=== PATIENT | female | born 1950 | race Caucasian/White ===

== ENCOUNTER → 2020-09-08 09:57 | Outpatient (CLI) | payer MEDICARE, SELFPAY ==
--- NOTE | ~2020-09-08 | MM_ITS ---
EXAMINATION: MM screening analilia BI w mal HISTORY: Screening TECHNIQUE: Craniocaudal and mediolateral oblique 3-D tomosynthesis images were obtained and synthetic 2-D images were generated. CAD analysis was submitted and interpreted. COMPARISON: Comparison to multiple prior studies sequentially, with oldest reviewed study dated 11/23. BREAST PARENCHYMAL COMPOSITION: There are scattered areas of fibroglandular density. FINDINGS: There is no evidence of suspicious mass, calcification, or architectural distortion to sugg est malignancy in either breast. There has been no suspicious interval change. IMPRESSION: 1. No mammographic evidence of malignancy. 2. Recommend routine screening mammography in one year. BI-RADS Category 1: Negative Reviewed, dictated and finalized at location A.
--- NOTE | ~2020-09-08 | DEXA_ITS ---
Bone Density Report Name: Yara Noland Age: 69 Sex: Female Ethnicity: White Date of : 1950 Indication: postmenopausal; screening for osteoporosis; height loss; Referring Provider: ASIA, NOHELIA Galindo Study: Bone densitometry was performed. Exam Date: September 08, 2020 Accession number: [id number] Bone Density: Region BMD T-score Z-score Classification AP Spine (L1-L4) 0.956 -0.8 1.4 Normal Femoral Neck (Left) 0.671 -1.6 0.3 Osteopenia Total Hip (Left) 0.811 -1.1 0.5 Osteopenia Femoral Neck (Right) 0.672 -1.6 0.3 Osteopenia Total Hip (Right) 0.828 -0.9 0.7 Normal Total Hip Mean 0.820 -1.0 0.6 Normal World Health Organization criteria for BMD impression classify patients as: Normal (T-score at or above -1.0), Osteopenia (T-score between -1.0 and -2.5), or Osteoporosis (T-score at or below -2.5). 10-year Fracture Risk(1): Major Osteoporotic Fracture 11% Hip Fracture 1.9% Reported Risk Factors: [place] (), Neck BMD=0.672, BMI=25.8 (1) FRAX(R) Version 3.08. Fracture probability calculated for an untreated patient. Fracture probability may be lower if the patient has received treatment. Previous Exams: Region Exam Age BMD T-score BMD Change BMD Change Date g/cm2 vs Baseline vs Previous AP Spine(L1-L4) 09/08/2020 69 0.956 -0.8 0.064* -0.033* 04/20/2018 67 0.989 -0.5 0.098* 0.007 04/14/2016 65 0.983 -0.6 0.091* 0.046* 11/03/2012 61 0.936 -1.0 0.045* 0.020 10/16/2010 59 0.916 -1.2 0.024* -0.004 08/16/2008 57 0.920 -1.2 0.029* 0.011 05/01/2007 56 0.909 -1.3 0.018 0.018 04/18/2006 55 0.892 -1.4 Total Hip(Left) 09/08/2020 69 0.811 -1.1 -0.101* -0.022 04/20/2018 67 0.833 -0.9 -0.080* -0.011 04/14/2016 65 0.845 -0.8 -0.068* -0.025 11/03/2012 61 0.870 -0.6 -0.043* -0.010 10/16/2010 59 0.880 -0.5 -0.033* -0.044* 08/16/2008 57 0.923 -0.2 0.011 -0.067* 05/01/2007 56 0.990 0.4 0.078* 0.078* 04/18/2006 55 0.913 -0.2 Total Hip(Right) 09/08/2020 69 0.828 -0.9 -0.106* -0.022 04/20/2018 67 0.849 -0.8 -0.084* -0.009 04/14/2016 65 0.858 -0.7 -0.076* -0.039* 11/03/2012 61 0.897 -0.4 -0.037* -0.006 10/16/2010 59 0.903 -0.3 -0.031* -0.056* 08/16/2008 57 0.959 0.1 0.025 -0.035* 05/01/2007 56
== END ==
PROVIDERS: PCP Internal Medicine; Visit Provider Internal Medicine
DX: Z12.31 Encounter for screening mammogram for malignant neoplasm of breast (principal); Z78.0 Asymptomatic menopausal state; M85.852 Other specified disorders of bone density and structure, left thigh; M85.851 Other specified disorders of bone density and structure, right thigh
CPT/HCPCS: 77063; 77067; 77080

== ENCOUNTER 2020-12-12 03:22 | Day surgery (SDC) | payer MEDICARE, SELFPAY ==
[2020-11-28 13:44] VITALS: BMI 24.5
[2020-12-12 09:52] VITALS: BP 131/59; PULSE 66; RESP 20; TEMP 36.2; O2SAT 99; BMI 23.8
--- NOTE | 2020-12-12 10:00 | WPDANESEPPF ---
Anes - Initial Pre Proc Eval Procedure: Operation Date: 12/12/20 10:30 Proposed Procedures p Colonoscopy - Sajan Leung MD Date/Time: 12/12/20 10:00 Surgeon: Sajan Leung MD Pre Op Diagnosis: hx of colon polyps, chronic diarrhea Patient Data Age: 70 Gender: F Height: 1.6 m Weight: 61.2 kg Last Vital Signs Temp 36.2 C L 12/12/20 09:52 Pulse 66 12/12/20 09:52 Resp 20 12/12/20 09:52 BP 131/59 L 12/12/20 09:52 Pulse Ox 99 12/12/20 09:52 Allergies Allergy/AdvReac Type Severity Reaction Status Date / Time No Known Allergies Allergy Verified 12/12/20 09:51 Home Medications Medication Instructions Recorded Confirmed Type rspigjxxuhru-Gy-ksmz-minerals 18 1 tablet PO DAILY 09/25/19 11/28/20 History mg-0.4 mg tablet oxybutynin chloride 10 mg 10 mg PO DAILY 08/26/20 11/28/20 History tablet,extended release 24 hr pantoprazole 40 mg tablet,delayed 40 mg PO QAM 08/26/20 11/28/20 History release trazodone 100 mg tablet 100 mg PO QHS PRN 08/26/20 11/28/20 History ibuprofen 800 mg tablet 800 mg PO HS tablet 11/25/20 11/28/20 History psyllium husk 3.4 gram/5.4 gram 1 tbsp PO BID 11/25/20 11/28/20 History oral powder Patient hx anesthesia problems: none Family hx anesthesia problems: none [facility] Past Medical History Medical History (Updated 12/12/20 @ 10:00 by Harman Beavers MD) Osteoarthritis Social History Social History Smoking status: Former smoker Tobacco type: cigarettes Alcohol intake: never Substance use: never Living arrangements: with family Gender identity (if verbalized by the patient): Female Spiritual care concerns: No Anes - Eval Final PreProcedure Day of Procedure 12/12/20 10:00 Patient weight: normal Heart: regular rate and rhythm Lungs: clear to auscultation and normal air movement Airway: Mallampati scale class II Neurological: alert and oriented Last oral intake: >/= 8 hours ASA classification: II Emergent: no Anesthetic plan: proceed Anesthesia type and monitoring: general GIVS Informed Consent: The patient's anesthetic plan and its attendant risks and benefits were discussed with the patient/family/POA. Questions were solicited and answers provided to the satisfaction of the patient/family/POA.
[2020-12-12] MEDS: LACTATED RINGERS 1,000 ML 150 ML IV CONT (10:05)
[2020-12-12 11:05] VITALS: BP 115/76; PULSE 59; RESP 14; O2SAT 99
[2020-12-12 11:15] VITALS: BP 122/80; PULSE 53; RESP 15; O2SAT 99
[2020-12-12 11:25] VITALS: BP 119/80; PULSE 56; RESP 16; O2SAT 100
== END 2020-12-12 11:33 | disposition home or self-care (01) ==
PROVIDERS: PCP Internal Medicine; Visit Provider Internal Medicine Gastroenterology
PROC: 0DJD8ZZ Inspection of Lower Intestinal Tract, Via Natural or Artificial Opening Endoscopic (ICD-10-PCS; CPT 45378; principal; 2020-12-12 10:30)
DX: Z12.11 Encounter for screening for malignant neoplasm of colon (principal); K63.5 Polyp of colon; K57.30 Diverticulosis of large intestine without perforation or abscess without bleeding; M19.90 Unspecified osteoarthritis, unspecified site; Z87.891 Personal history of nicotine dependence
CPT/HCPCS: 45385; 88305; J2704; J7120

== ENCOUNTER → 2022-11-18 09:44 | Outpatient (CLI) | payer MEDICARE, SELFPAY ==
--- NOTE | ~2022-11-18 | DEXA_ITS ---
Bone Density Report Name: HONG LOCO Age: 72 Sex: Female Ethnicity: White Date of : 1950 Indication: osteopenia; height loss; postmenopausal Referring Provider: ASIA, NOHELIA Galindo Study: Bone densitometry was performed. Exam Date: November 18, 2022 Accession number: [id number] Bone Density: Region BMD T-score Z-score Classification AP Spine (L1, L2) 0.896 -0.8 1.4 Normal Femoral Neck (Left) 0.633 -2.0 0.1 Osteopenia Total Hip (Left) 0.823 -1.0 0.8 Normal Femoral Neck (Right) 0.685 -1.5 0.5 Osteopenia Total Hip (Right) 0.822 -1.0 0.7 Normal Total Hip Mean 0.823 -1.0 0.8 Normal World Health Organization criteria for BMD impression classify patients as: Normal (T-score at or above -1.0), Osteopenia (T-score between -1.0 and -2.5), or Osteoporosis (T-score at or below -2.5). 10-year Fracture Risk(1): Major Osteoporotic Fracture 12% Hip Fracture 2.9% Reported Risk Factors: [place] (), Neck BMD=0.633, BMI=27.5 (1) FRAX(R) Version 3.08. Fracture probability calculated for an untreated patient. Fracture probability may be lower if the patient has received treatment. Previous Exams: Region Exam Age BMD T-score BMD Change BMD Change Date g/cm2 vs Baseline vs Previous AP Spine(L1, L2) 11/18/2022 72 0.896 -0.8 0.087* -0.004 09/08/2020 69 0.900 -0.7 0.091* 0.030* 04/20/2018 67 0.870 -1.0 0.062* 0.008 04/14/2016 65 0.862 -1.1 0.054* 0.010 11/03/2012 61 0.853 -1.1 0.044* 0.024* 10/16/2010 59 0.829 -1.4 0.020 -0.007 08/16/2008 57 0.836 -1.3 0.027* 0.001 05/01/2007 56 0.834 -1.3 0.026* 0.026* 04/18/2006 55 0.808 -1.6 Total Hip(Left) 11/18/2022 72 0.823 -1.0 -0.089* 0.012 09/08/2020 69 0.811 -1.1 -0.101* -0.022 04/20/2018 67 0.833 -0.9 -0.080* -0.011 04/14/2016 65 0.845 -0.8 -0.068* -0.025 11/03/2012 61 0.870 -0.6 -0.043* -0.010 10/16/2010 59 0.880 -0.5 -0.033* -0.044* 08/16/2008 57 0.923 -0.2 0.011 -0.067* 05/01/2007 56 0.990 0.4 0.078* 0.078* 04/18/2006 55 0.913 -0.2 Total Hip(Right) 11/18/2022 72 0.822 -1.0 -0.112* -0.006 09/08/2020 69 0.828 -0.9 -0.106* -0.022 04/20/2018 67 0.849 -0.8 -0.084* -0.009 04/14/2016 65 0.858 -0.7 -0.076* -0.039* 11/03/2012 61 0.897 -0.4 -0.037*
--- NOTE | ~2022-11-18 | MM_ITS ---
EXAMINATION: MM screening analilia BI w mal HISTORY: Screening mammogram TECHNIQUE: Craniocaudal and mediolateral oblique 3-D tomosynthesis images were obtained and synthetic 2-D images were generated. CAD analysis was submitted and interpreted. COMPARISON: 10/05/2020, 05/22/2019, 04/20/2018 bilateral screening mammogram examinations BREAST PARENCHYMAL COMPOSITION: The breasts are heterogeneously dense, which may obscure small masses . FINDINGS: There is no evidence of suspicious mass, calcification, or architectural distortion to sugg est malignancy in either breast. There has been no suspicious interval change. IMPRESSION: 1. No mammographic evidence of malignancy. 2. Recommend routine screening mammography in one year. BI-RADS Category 1: Negative Reviewed, dictated and finalized at location A.
== END ==
PROVIDERS: PCP Internal Medicine; Visit Provider Internal Medicine
DX: Z12.31 Encounter for screening mammogram for malignant neoplasm of breast (principal); Z78.0 Asymptomatic menopausal state; M85.852 Other specified disorders of bone density and structure, left thigh; M85.851 Other specified disorders of bone density and structure, right thigh
CPT/HCPCS: 77063; 77067; 77080

== ENCOUNTER 2024-05-03 13:57 | Outpatient (CLI) | payer MEDICARE, OTHER, SELFPAY ==
--- NOTE | ~2024-05-03 | MM_ITS ---
EXAMINATION: MM screening analilia BI w mal HISTORY: Screening TECHNIQUE: Craniocaudal and mediolateral oblique 3-D tomosynthesis images were obtained and synthetic 2-D images were generated. CAD analysis was submitted and interpreted. COMPARISON: 11/18/2022 and dating back to 05/22/2019 BREAST PARENCHYMAL COMPOSITION: FINDINGS: Punctate calcifications detected bilaterally, stable and benign in appearance. Stable parenchymal pattern without suspicious microcalcifications, architectural distortion, discrete masses or significant asymmetry. IMPRESSION: 1. No mammographic evidence of malignancy. 2. Recommend routine screening mammography in one year. BI-RADS Category 2: Benign finding(s). Reviewed, dictated and finalized at location A. NG ROOM CASHIER
== END 2024-05-03 13:58 | disposition home or self-care (01) ==
PROVIDERS: PCP Internal Medicine; Visit Provider Internal Medicine
DX: Z12.31 Encounter for screening mammogram for malignant neoplasm of breast (principal); R92.323 Mammographic fibroglandular density, bilateral breasts
CPT/HCPCS: 77063; 77067

== ENCOUNTER 2024-05-21 12:34 | Outpatient (CLI) | payer MEDICARE, OTHER, SELFPAY ==
--- NOTE | ~2024-05-21 | XR_ITS ---
CHEST RADIOGRAPH, PA AND LATERAL CLINICAL HISTORY: Dyspnea . COMPARISON: None available TECHNIQUE: PA and lateral views of the chest. FINDINGS The cardiomediastinal silhouette is unremarkable. The lungs are clear. Visualized osseous structures and soft tissues are unremarkable. IMPRESSION: No focal infiltrate or effusion. If clinical suspicion persists, cross-sectional imaging (noncontrast enhanced CT examination of the c hest) is suggested for further evaluation. Reviewed, dictated and finalized at location A. CTOR OF SOLUTIONS ARCHITECTURE IMPRESSION: No focal infiltrate or effusion. If clinical suspicion persists, cross-sectional imaging (noncontrast enhanced C T examination of the chest) is suggested for further evaluation.
== END 2024-05-21 12:35 | disposition home or self-care (01) ==
LOC: MICIMG 12:36
PROVIDERS: PCP Internal Medicine; Visit Provider Internal Medicine
DX: R06.00 Dyspnea, unspecified (principal)
CPT/HCPCS: 71046

== ENCOUNTER 2025-03-11 01:03 | Emergency (ER) | payer MEDICARE, OTHER, SELFPAY ==
[2025-03-11 01:05] VITALS: BP 148/80; PULSE 76; RESP 16; TEMP 36.3; O2SAT 100
--- OUTSIDE RECORDS SUMMARY | 2025-03-11 01:06 | XMS_ITS | Clinical Summary ---
Author Organization [facility] Address [address] [place] [address] Care Team Providers Care Rfid Systems Engineer Name Role Phone Marek Irwin MD Unavailable [phone] Deonte Easton MD Primary Care Provider [phone] Nicolas MURRAY MD, Dominick Unavailable [phone] Source Comments [facility],non-owned Affiliates and Associated Physician Practices is amultiple site organization consisting of ambulatory clinics and hospital sitesin [place], [place], [place] and [place]. This disclosure is being madepursuant to the Care Everywhere program and may not contain all information available regarding this patient. Last updated 18.[facility] Allergies Active Allergy Reactions Criticality Noted Date Comments Food GI Discomfort 10/18/2023 lactose Medications * Be aware that medications may not be up to date on this document. Alwaysverify current medications with the patient. Multiple Vitamins-Calciu m (ONE-A-DAY WOMENS PO)Indications: SUPPLEMENT Take by mouth. Indications: SUPPLEMENT Active B Complex Vitamins (VITAMIN B COMPLEX PO)Indications: SUPPLEMENT Take by mouth once daily. Indications: SUPPLEMENT Active calcium-vitamin D (CALTRATE PLUS D) 600-200 MG-UNIT tabletIndicatio ns:SUPPLEMENT Take 1 (one) tablet by mouth once daily Reasons: SUPPLEMENT Active aspirin EC (ECOTRIN) 325 MG tablet Take 1 Tab by mouth 2 times daily with morning and evening meal for 42 days. For 6 weeks 60 Tab 1 5 Active celecoxib (CELEBREX) 200 MG capsule Take 1 Cap by mouth 2 times daily for 30 days. 60 Cap 0 5 Active pantoprazole EC (Protonix) 40 MG tabletIndicatio ns:Heartburn Take 1 (one) tablet by mouth every morning Reasons: Heartburn 4 Active trospium (Sanctura) 20 MG tabletIndicatio ns:Overactive Bladder Take 1 (one) tablet by mouth 2 times daily Reasons: Overactive Bladder 4 Active traZODone (Desyrel) 100 MG tabletIndicatio ns:Insomnia TAKE 1 TABLET BY MOUTH ONCE DAILY AT BEDTIME NEEDED 4 Active acetaminophen (Tylenol) 500 MG capsuleIndicati ons:Pain,MILD TO MODERATE PAIN Take 2 (two) capsules by mouth 3 times daily Take for ten days then as needed. 4 Active oxyCODONE, immediate release, (Roxicodone) 10 MG tabletIndicatio ns:Acute Pain,MODERATE TO SEVERE PAIN Take 0.5 (one-half) tablet to 1 (one) tablet by mouth every 4 hours as needed for Pain (PAIN) Reasons: Acute Pain, MODERATE TO SEVERE PAIN 30 tablet 4 Active cyclobenzaprine (Flexeril) 10 MG tablet Take 1 (one) tablet by mouth nightly as needed for Muscle Spasms 30 tablet 1 4 Active aspirin (Aspirin) 81 MG chew tablet CHEW AND SWALLOW 1 TABLET BY MOUTH TWO TIMES A DAY FOR 42 DAYS FOR BLOOD CLOT PREVENTION 84 tablet 4 Active celecoxib (CeleBREX) 200 MG capsule TAKE ONE CAPSULE BY MOUTH 2 TIMES A DAY FOR 42 DAYS 84 capsule 4 Active Hospital, Clinic, or Other Facility Administered Medication Ordered Dose Route Frequency Start Date End Date Status 0.9% NaCl injection 3 mLIndications:Rotator cuff arthropathy, right 3 mL IX ONCE 02/20/2025 02/20/2025 Ended triamcinolone acetonide (Kenalog-40) injection 40 mgIndications:Rotator cuff arthropathy, right 40 mg IX ONCE 02/20/2025 02/20/2025 Ended Active Problems Problem Noted Date Diagnosed Date Arthritis of knee 10/17/2023 History of left knee replacement 12/12/2017 Encounters Date Type Department Care Team Description 02/20/2025 2:55 PM CDT Ancillary Procedure [facility] - Radiology [address] [place] [address] Tiffany Jaimes PA-C Rotator cuff arthropathy, right 02/20/2025 2:45 PM CDT Office Visit [facility] [address] [place] [address] Tiffany Jaimes PA-C Rotator cuff arthropathy, right (Primary Dx) from Last 3 Months Immunizations Immunization Administration Dates Next Due PNEUMOCOCCAL PPSV23 05/17/2014 TD (ADULT), 5 LF TETANUS TOXOID, ADSORBED, PF Social History Tobacco Use Types Packs/Day Years Used Date Smoking Tobacco: Former Cigarettes Smokeless Tobacco: Never Tobacco Cessation:Counseling Given: Not Answered Alcohol Use Standard Drinks/Week Comments Yes 0.8 (1 standard drink = 0.6 oz p ure alcohol) glass of wine once a month OASIS D0700: Social Isolation Answer Da te Recorded Frequency of experiencing loneliness or isolatio n Never 11/03/2023 OASIS A1250: Transportation Answer Date Recorded Lack of Transportation (Medical) No 11/03/2023 Lack of Transportation (Non-Medical) No 11/03/2023 Patient Unable or Declines to Respond No 11/03/2023 OASIS B1300: Health Literacy Answer Naeem e Recorded Frequency of needing help to read materials from doctor or pharmacy Never 11/03/2023 AUDIT-C Answer Date Recorded Q1: How often do you have a drink containing alc ohol? Monthly or less 10/17/2023 Q2: How many drinks containi ng alcohol do you have on a typical day when you are drinking? 1 or 2 10/17/2023 Q3: How often do you have si x or more drinks on one occasion? Never 10/17/2023 PHQ-2 Answer Date Recorded Patient Health Questionnaire-2 Score 0 02/13/2025 Hunger Vital Sign Answer Date Recorded Within the past 12 months, y ou worried that your food would run out before you got the money to buy more. Never true 10/18/19 24 Within the past 12 months, t he food you bought just didn't last and you didn't have money to get more. 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 Gender Identity Not on file Sexual Orientation Not on file Last Filed Vital Signs Vital Sign Reading Time Taken Comments Blood Pressure 112/62 11/03/2023 10:13 AM CDT Pulse 74 11/03/2023 10:13 AM CDT Temperature 37.1 C (98.7 F) 11/03/2023 10:13 AM CDT Respiratory Rate 17 11/03/2023 10:13 AM CDT Oxygen Saturation 98% 11/03/2023 10:13 AM CDT Inhaled Oxygen Concentration - - Weight 67.6 kg (149 lb) 10/17/2023 8:16 AM CDT Height 157.5 cm (5' 2) 10/17/2023 8:16 AM CDT Body Mass Index 27.25 10/17/2023 8:16 AM CDT Plan of Treatment Health Maintenance Due Date Last Done Comments BONE DENSITY TESTING 1950 MEDICARE AWV 12 MONTHS 1950 HEPATITIS C SCREENING 11/14/1966 ZOSTER VACCINE (1 of 2) 1998 PNEUMOCOCCAL VACCINE 50+ (2 of 2 - PCV) 05/17/2015 05/17/2014 Respiratory Syncytial Virus (RSV) Vaccine Pt: or over 60 yrs (1 - 1-dose 75+ series) 11/19/2023 DTAP/TDAP/TD VACCINES (2 - T d or Tdap) 07/27/2024 07/27/2014 COVID-19 VACCINE (3 - 2024-2 6 season) 2025 07/11/2020, 06/13/2020 INFLUENZA VACCINE (#1) 2025 02/28/2020 DEPRESSION SCREENING Completed 02/20/2025, 10/11/2023 HEPATITIS B VACCINE Aged Out No longe r eligible based on patient's age to complete this topic HIB VACCINE Aged Out No longer eligi ble based on patient's age to complete this topic HPV VACCINE Aged Out No longer eligi ble based on patient's age to complete this topic MENINGOCOCCAL (Group B) VACCINE SHARED DECISION-MAKING Aged Out No longer eligible based on patient's age to complete this topic MENINGOCOCCAL GROUPS A/C/Y/W VACCINE Aged Out No longer eligible b ased on patient's age to complete this topic Medical Devices Implanted Type Area Outside Event Sales Specialist Device Identifier Shelf Expiration Date Model / Serial / Lot Guero Bone [place] Hv Implanted:Qty: 1 on 05/15/2014 by Marek Irwin MD at [facility] Left: Knee [employer] 12/07/2015 [id number] / / [id number] Ins Kn Vangurd Fem Cocr L-Intlok 65.0mm Implanted:Qty: 1 on 05/15/2014 by Marek Irwin MD at [facility] Left: Knee [employer] 05/08/2024 [id number] / / [id number] Butn Pat Arcom Wire Polyeth Sm 31 X 8mm Implanted:Qty: 1 on 05/15/2014 by Marek Irwin MD at [facility] Left: Knee [employer] 04/07/2019 [id number] / / [id number] Tibial I Beam Fix Bar 71mm Implanted:Qty: 1 on 05/15/2014 by Marek Irwin MD at [facility] Left: Knee [employer] 01/07/2024 [id number] / / [id number] Brdg Tib Estephania Stbl 12mm X 71mm Implanted:Qty: 1 on 05/15/2014 by Marek Irwin MD at [facility] Left: Knee [employer] 04/07/2019 [id number] / / [id number] Brng [id number] Vngrd Arcm Kn Ant Stab Implanted:Qty: 1 on 10/17/2023 by Marek Irwin MD at [facility] Right: Knee Maris [employer] 03/02/2028 [id number] / / [id number] Cmnt Bone Plc R 40gm Grn Implanted:Qty: 1 on 10/17/2023 by Marek Irwin MD at [facility] Right: Knee [employer] 02/05/2026 [id number] / / [id number] Tray Tib 71mm Kn Cocr I Beam Implanted:Qty: 1 on 10/17/2023 by aMrek Irwin MD at [facility] Right: Knee Mairs [employer] 07/08/2032 [id number] / / [id number] Cmpnt Fem Kn Rt Cr Cmnt Prm Vngrd Intlk 65 Mm Implanted:Qty: 1 on 10/17/2023 by Marek Irwin MD at [facility] Right: Knee Mar[employer] 03/14/2033 [id number] / / [id number] Cmpnt Ptlr Std 28mm 3 Pg Kn Ser A Implanted:Qty: 1 on 10/17/2023 by Marek Irwin MD at [facility] Right: Knee Maris [employer] 08/03/2028 [id number] / / [id number] Procedures Procedure Name Priority Date/Time Associated Diagnosis Comments XR SHOULDER RIGHT 2VW OR MORE Routine 02/20/2025 2:57 PM CDT Rotator cuff arthropathy, right from Last 3 Months Results * XR Shoulder Right 2Vw or More (02/20/2025 2:57 PM CDT) Narrative [facility] [address] - 02/20/2025 2:57 PM CDT Please see progress note in Epic for results. us Tiffany Jaimes PA-C DIAGNOSTIC IMAGING ORDERABLE S Final Result [facility] [address] from Last 3 Months Insurance MEDICARE [facility] Advance Directives Documents on File Type Date Recorded Patient Health Care / Medical Job Titles Expl anation Adv Directive/Living Will/POA 05/18/2014 8:36 PM * Full Code (Latest Code Status on File) Date Activated Date Inactivated Comments 10/19/2023 3:07 PM To update the patient's code status, place a code status order. Do not modify or discontinue any currently active code status orders. * Full Code Date Activated Date Inactivated Comments 10/17/2023 2:14 PM 10/18/2023 2:23 PM * Full Code Date Activated Date Inactivated Comments 05/15/2014 10:39 AM 05/17/2014 1:51 PM Care Teams Rfid Systems Engineer Relationship Specialty Start Date End Date Deonte Easton MD [address] [facility] [address] [place] [address] PCP - General Internal Medicine 05/28/13 Marek Irwin MD Orthopedic Surgery 03/24/12 [place] [id number] [address] [place] [id number] Orthopedic Surgery 09/06/16
--- OUTSIDE RECORDS SUMMARY | 2025-03-11 01:07 | XMS_ITS | Data Portability ---
Author Organization [place] [facility], Main Office Address [address] [place] [address] Care Team Providers Care Rn Hematology Name Role Phone NOHELIA BETANCOURT Primary Care Provider NOHELIA BETANCOURT Referring Provider [phone] Assessment No assessment recorded. Plan of Treatment Reminders Order Date Submit Date Provider Last Modified By Organization Details Last Modified Time Details Appointments Medicare Wellness 15 2024 08:30A M Nohelia Betancourt MD Not available Not available Not available Lab vitamin D, 25-hydrox y, total, serum 2024 025 [email or web address] [facility] (Lab), [address] [place], [address], 10/29/2024 11:02:54 CBC w/ auto diff 2024 025 [facility] (Lab), [address] [place], [address], 10/22/2024 19:07:39 vitamin B12, serum 2024 025 [facility] (Lab), [address] [place], [address], 10/22/2024 20:53:09 iron + total iron-bind ing capacity (TIBC), serum 2024 025 [facility] (Lab), [address] [place], [address], 10/22/2024 19:23:51 CBC w/ auto diff 2024 025 [email or web address] [facility] (Lab), [address] [place], [address], 10/29/2024 11:02:54 lipid panel, serum 2024 025 [facility] (Lab), [address] [place], [address], 10/22/2024 19:24:18 CMP, serum or plasma 2024 025 [facility] (Lab), [address] [place], [address], 10/22/2024 19:24:23 Referral None recorded. Procedures None recorded. Surgeries None recorded. Imaging bone density - Please call patient to schedule. 2024 025 [facility] [place] ([facility]), [address] [place], [address], 11/22/2024 18:05:57 Medication Orders None recorded. Patient TargetsNo targets recorded. Patient Instructions Encounter Date Encounter Id Patient Instructions Last Modified By Organization Details Last Modified Time 07/16/2024 [id number] Personalized [facility] Plan and Screening Recommendations Advance Directives - Do you have one? Yes Advance Directives - Do we have your advance directive on file in your health record? No, please bring in a copy at your earliest convenience Primary Prevention/Interven tion (prevents or decreases the chance of common diseases from occurring) Smoking Risk: Non Smoker Alcohol Misuse Screening: Negative Weight: Overweight try to lose 10% of your body weight Physical activity: Need more exercise/physical activity Nutrition: Average Refer to attached handout Heart-Healthy Diet: After Your Visit Fall Risk (screened today): Low Refer to attached handout Preventing Falls: After your Visit Vaccines Pneumococcal: No further needed Influenza: Your next one in the fall of this year Chronic Disease Risks Stroke: Low Risk I have no recommendations Heart Attack: Low risk I have no recommendations Clogging of the Arteries: Low risk I have no recommendations Diabetes: Low Risk I have no recommendations Secondary Prevention/Interven tion (detects treatable diseases before they may cause symptoms, disability, or ) Breast Cancer Screening with mammogram: Ordered Cervical/Uterine/Ov mackenize Cancer Screening: No screening necessary Osteoporosis Screening: No screening necessary Date Screening Last Performed: 2022 Colon Cancer Screening: No screening necessary Date Screening Last Performed:2017 Eye Disease Screening: No Eye exam necessary Dementia Risk: Low I have no recommendations Depression Screening: Negative [email or web address] Not available 07/16/2024 15:54:24 11/21/2024 [id number] After ear cleani ng, it is common to have feeling of fullness or muffled sounds. This will subside after a day or so. Call with any concerns or questions. [email or web address] Not available 11/21/2024 09:36:15 Reason for Referral None Reported. Results Created Date Observation Date Name Description Value Unit Range Abnormal Flag Note LastModifiedBy Organization Detail LastModifiedTime 07/27/1907/26/2024 COLOG UARD cologuard result Cancel led - Order d not applic able Not Available [facility] [address], [place], [address], 07/26/2024 21:29:00 10/23/19 25 10/22/2024 CBC/C OMPLE TE BLD COUNT W/DIF F white blood cells 5.8 x10'3 /uL 4.2-10 .8 Not Available [facility] (Lab) [address] [place], [address], 10/22/2024 19:07:39 10/23/19 25 10/22/2024 CBC/C OMPLE TE BLD COUNT W/DIF F red blood cells 3.94 x10'6 /uL 3.80-5 .20 Not Available [facility] (Lab) [address] [place], [address], 10/22/2024 19:07:39 10/23/19 25 10/22/2024 CBC/C OMPLE TE BLD COUNT W/DIF F hemoglobin 13.5 g/dL 12.0-1 5.6 Not Available [facility] (Lab) [address] [place], [address], 10/22/2024 19:07:39 10/23/19 25 10/22/2024 CBC/C OMPLE TE BLD COUNT W/DIF F hematocrit 40.7 % 35.7-4 5.7 Not Available [facility] (Lab) [address] [place], [address], 10/22/2024 19:07:39 10/23/19 25 10/22/2024 CBC/C OMPLE TE BLD COUNT W/DIF F mean red cell volume 103.3 fL 82.0-9 9.0 high Not Available [facility] (Lab) [address] [place], [address], 10/22/2024 19:07:39 10/23/19 25 10/22/2024 CBC/C OMPLE TE BLD COUNT W/DIF F mean red cell hemoglobin 34.3 pg 27.0-3 3.0 high Not Available [facility] (Lab) [address] [place], [address], 10/22/2024 19:07:39 10/23/19 25 10/22/2024 CBC/C OMPLE TE BLD COUNT W/DIF F mean RBC HGB concentratio n 33.2 g/dL 31.0-3 6.0 Not Available [facility] (Lab) [address] [place], [address], 10/22/2024 19:07:39 10/23/19 25 10/22/2024 CBC/C OMPLE TE BLD COUNT W/DIF F red cell distribution width 13.1 % 11.8-1 5.5 Not Available [facility] (Lab) [address] [place], [address], 10/22/2024 19:07:39 10/23/19 25 10/22/2024 CBC/C OMPLE TE BLD COUNT W/DIF F platelets 280 x10'3 /uL 150-40 0 Not Available [facility] (Lab) [address] [place], [address], 10/22/2024 19:07:39 10/23/19 25 10/22/2024 CBC/C OMPLE TE BLD COUNT W/DIF F mean platelet volume 11.3 fL 9.0-12 .4 Not Available [facility] (Lab) [address] [place], [address], 10/22/2024 19:07:39 10/23/19 25 10/22/2024 CBC/C OMPLE TE BLD COUNT W/DIF F neutrophils 45.6 % 39.0-7 2.0 Not Available [facility] (Lab) [address] [place], [address], 10/22/2024 19:07:39 10/23/19 25 10/22/2024 CBC/C OMPLE TE BLD COUNT W/DIF F lymphocytes 41.0 % 16.0-4 7.0 Not Available [facility] (Lab) [address] [place], [address], 10/22/2024 19:07:39 10/23/19 25 10/22/2024 CBC/C OMPLE TE BLD COUNT W/DIF F monocytes 10.9 % 5.0-12 .0 Not Available [facility] (Lab) [address] [place], [address], 10/22/2024 19:07:39 10/23/19 25 10/22/2024 CBC/C OMPLE TE BLD COUNT W/DIF F eosinophils 1.6 % 1.0-7. 0 Not Available [facility] (Lab) [address] [place], [address], 10/22/2024 19:07:39 10/23/19 25 10/22/2024 CBC/C OMPLE TE BLD COUNT W/DIF F basophils 0.7 % 0.0-2. 0 Not Available [facility] (Lab) [address] [place], [address], 10/22/2024 19:07:39 10/23/19 25 10/22/2024 CBC/C OMPLE TE BLD COUNT W/DIF F immature granulocytes 0.2 % 0.00-0 .50 Not Available [facility] (Lab) [address] [place], [address], 10/22/2024 19:07:39 10/23/19 25 10/22/2024 CBC/C OMPLE TE BLD COUNT W/DIF F neutrophils, absolute count 2.65 x10'3 /uL 1.5-8. 0 Not Available [facility] (Lab) [address] [place], [address], 10/22/2024 19:07:39 10/23/19 25 10/22/2024 CBC/C OMPLE TE BLD COUNT W/DIF F lymphocytes, absolute count 2.38 x10'3 /uL 1.07-3 .43 Not Available [facility] (Lab) [address] [place], [address], 10/22/2024 19:07:39 10/23/19 25 10/22/2024 CBC/C OMPLE TE BLD COUNT W/DIF F monocytes, absolute count 0.63 x10'3 /uL 0.29-0 .99 Not Available [facility] (Lab) [address] [place], [address], 10/22/2024 19:07:39 10/23/19 25 10/22/2024 CBC/C OMPLE TE BLD COUNT W/DIF F eosinophils, absolute count 0.09 x10'3 /uL 0.02-0 .53 Not Available [facility] (Lab) [address] [place], [address], 10/22/2024 19:07:39 10/23/19 25 10/22/2024 CBC/C OMPLE TE BLD COUNT W/DIF F basophils, absolute count 0.04 x10'3 /uL 0.01-0 .08 Not Available [facility] (Lab) [address] [place], [address], 10/22/2024 19:07:39 10/23/19 25 10/22/2024 CBC/C OMPLE TE BLD COUNT W/DIF F immature granulocytes ,absolute 0.01 x10'3 /uL 0.00-0 .05 Not Available [facility] (Lab) [address] [place], [address], 10/22/2024 19:07:39 10/23/19 25 10/22/2024 CBC/C OMPLE TE BLD COUNT W/DIF F nucleated red blood cells 0.0 % -0 Not Available [facility] (Lab) [address] [place], [address], 10/22/2024 19:07:39 10/23/19 25 10/22/2024 CBC/C OMPLE TE BLD COUNT W/DIF F NRBC# 0.00 x10'3 /uL Not Available [facility] (Lab) [address] [place], [address], 10/22/2024 19:07:39 10/23/19 25 10/22/2024 IRON/ TIBC PANEL total iron binding capacity 232 mcg/d L 265-47 5 low Not Available [facility] (Lab) [address] [place], [address], 10/22/2024 19:34:30 10/23/19 25 10/22/2024 IRON/ TIBC PANEL % transferrin saturation 62 % 20-55 high Not Available [facility] (Lab) [address] [place], [address], 10/22/2024 19:34:30 10/23/19 25 10/22/2024 IRON/ TIBC PANEL unsaturated iron bind capacity 89 mcg/d L 126-38 2 low Not Available [facility] (Lab) [address] [place], [address], 10/22/2024 19:34:30 10/23/1910/22/2024 IRON/ TIBC PANEL iron 143 mcg/d L 42-175 Not Available [facility] (Lab) [address] [place], [address], 10/22/2024 19:34:30 10/23/19 25 10/22/2024 LIPID PANEL cholesterol 247 mg/dL 140-19 9 high NIH SALTY NSUS RECOM MENDA TION FOR PENELOPE STERO L: ADULT CHILD LOW RISK: <200 <170 BORDE RLINE : <200- 239 ----- HIGH RISK: >240 >200 Not Available [facility] (Lab) [address] [place], [address], 10/22/2024 19:30:02 10/23/19 25 10/22/2024 LIPID PANEL triglyceride s 80 mg/dL 0-150 NIH SALTY NSUS REPOR T RECOM MENDA TION FOR TRIGL YCERI MARY KAY: ADULT CHILD LOW RISK: <150 ----- BODER LINE: 150-1 99 ----- HIGH RISK: >200 ----- Not Available [facility] (Lab) [address] [place], [address], 10/22/2024 19:30:02 10/23/1910/22/2024 LIPID PANEL HDL cholesterol 129 mg/dL 40- Not Available [facility] (Lab) [address] [place], [address], 10/22/2024 19:30:02 10/23/1910/22/2024 LIPID PANEL LDL cholesterol, calculated 102 mg/dL 0-130 NIH SALTY NSUS REPOR T RECOM MENDA TIONS FOR LDL: ADULT CHILD LOW RISK <130 <110 (OPTI MAL LDL) <100 ----- BORDE RLINE : 130-1 59 ----- HIGH RISK: >160 >130 A TRIGL YCERI DE RESUL T >400 INVAL IDATE S THE CALCU LATIO N FOR LDL FRACT IONAT ION - THE LDL RESUL T WILL NOT BE REPOR MIKE. Not Available [facility] (Lab) [address] [place], [address], 10/22/2024 19:30:02 10/23/19 25 10/22/2024 COMPR EHENS KIMBERLY METAB OLIC PANEL sodium 137 mmol/ L 137-14 5 Not Available [facility] (Lab) [address] [place], [address], 10/22/2024 19:24:23 10/23/19 25 10/22/2024 COMPR EHENS KIMBERLY METAB OLIC PANEL potassium 4.8 mmol/ L 3.5-5. 1 Not Available [facility] (Lab) [address] [place], [address], 10/22/2024 19:24:23 10/23/19 25 10/22/2024 COMPR EHENS KIMBERLY METAB OLIC PANEL chloride 102 mmol/ L 98-107 Not Available [facility] (Lab) [address] [place], [address], 10/22/2024 19:24:23 10/23/19 25 10/22/2024 COMPR EHENS KIMBERLY METAB OLIC PANEL carbon dioxide 30 mmol/ L 22-30 Not Available [facility] (Lab) [address] [place], [address], 10/22/2024 19:24:23 10/23/19 25 10/22/2024 COMPR EHENS KIMBERLY METAB OLIC PANEL anion gap 9.8 mmol/ L 14-22 low Not Available [facility] (Lab) [address] [place], [address], 10/22/2024 19:24:23 10/23/19 25 10/22/2024 COMPR EHENS KIMBERLY METAB OLIC PANEL glucose 91 mg/dL 70-99 Not Available [facility] (Lab) [address] [place], [address], 10/22/2024 19:24:23 10/23/19 25 10/22/2024 COMPR EHENS KIMBERLY METAB OLIC PANEL BUN 19 mg/dL 8-19 Not Available [facility] (Lab) [address] [place], [address], 10/22/2024 19:24:23 10/23/19 25 10/22/2024 COMPR EHENS KIMBERLY METAB OLIC PANEL creatinine 0.78 mg/dL 0.66-1 .25 Not Available [facility] (Lab) [address] [place], [address], 10/22/2024 19:24:23 10/23/19 25 10/22/2024 COMPR EHENS KIMBERLY METAB OLIC PANEL GFR >60 Refer ence Range : Metaline ge GFR Healt hy Adult : >60 mL/mi n/1.7 3 m2 Chron ic Kidne y Disea se: 15-60 mL/mi n/1.7 3 m2 Kidne y Failu re: <15/m L/min /1.73 m2 www.n iddk. nih.g ov The MDRD study equat ion has not been valid ated in child fred <18 years of age; pregn ant women ; the elder ly >85 years of age; or in some racia l or ethni c subgr oups, such as [employer]. Outsi de the valid ated caprice eters , estim ated GFR is less accur ate, requi ring clini kathe judgm ent on a case- by-ca se basis . Clini kathe inter preta tion for other races and ages must be made by the clini neo. The MDRD study equat ion has not been valid ated for the evalu ation of serum creat inine relat ed to nutri maegan l statu s or medic ation usage . For perso ns <18 years of age, a pedia tric GFR calcu lator is avail able on the NK websi te: https ://danyel w.ana johnson.o rg/pr ofess ional s/kdo qi/gf r_cal culat or Not Available [facility] (Lab) [address] [place], [address], 10/22/2024 19:24:23 10/23/19 25 10/22/2024 COMPR EHENS KIMBERLY METAB OLIC PANEL alkaline phosphatase 69 U/L 38-126 Not Available [facility] (Lab) [address] [place], [address], 10/22/2024 19:24:23 10/23/19 25 10/22/2024 COMPR EHENS KIMBERLY METAB OLIC PANEL alanine aminotransfe rase 18 U/L 0-35 Not Available [facility] (Lab) [address] [place], [address], 10/22/2024 19:24:23 10/23/19 25 10/22/2024 COMPR EHENS KIMBERLY METAB OLIC PANEL aspartate aminotransfe rase 33 U/L 15-37 Not Available [facility] (Lab) [address] [place], [address], 10/22/2024 19:24:23 10/23/19 25 10/22/2024 COMPR EHENS KIMBERLY METAB OLIC PANEL bilirubin, total 0.60 mg/dL 0.20-1 .30 Not Available [facility] (Lab) [address] [place], [address], 10/22/2024 19:24:23 10/23/19 25 10/22/2024 COMPR EHENS KIMBERLY METAB OLIC PANEL calcium 9.9 mg/dL 8.4-10 .2 Not Available [facility] (Lab) [address] [place], [address], 10/22/2024 19:24:23 10/23/19 25 10/22/2024 COMPR EHENS KIMBERLY METAB OLIC PANEL total protein 6.6 g/dL 6.3-8. 2 Not Available [facility] (Lab) [address] [place], [address], 10/22/2024 19:24:23 10/23/19 25 10/22/2024 COMPR EHENS KIMBERLY METAB OLIC PANEL albumin 4.4 g/dL 3.0-4. 4 Not Available [facility] (Lab) [address] [place], [address], 10/22/2024 19:24:23 10/23/19 25 10/22/2024 COMPR EHENS KIMBERLY METAB OLIC PANEL globulin 2.2 g/dL 2.6-4. 2 low Not Available [facility] (Lab) [address] [place], [address], 10/22/2024 19:24:23 10/23/19 25 10/22/2024 COMPR EHENS KIMBERLY METAB OLIC PANEL A/G ratio 2.0 ratio 1.0-2. 0 Not Available [facility] (Lab) [address] [place], [address], 10/22/2024 19:24:23 10/23/19 25 10/22/2024 VITAM IN D 25-HY DROXY vd25oh 58.3 NG/mL 30-100 Vitam in D Statu s: Defic ient: <20 ng/mL Insuf ficie nt: 20-29 ng/mL Suffi cient : 30-10 0 ng/mL Not Available [facility] (Lab) [address] [place], [address], 10/22/2024 19:38:18 10/23/19 25 10/22/2024 VITAM IN B12 (GINNY ISAAC ) vb12 487 pg/mL 239-93 1 Not Available [facility] (Lab) [address] [place], [address], 10/22/2024 20:53:09 05/03/20 24 05/03/2024 MAMMO , scree dyana, digit al, bilat eral No observ ation record ed. [email or web address] Not Available 2024 12:18:25 05/04/20 24 05/03/2024 MAMMO , kay turpin, digit al, bilat eral No observ ation record ed. [email or web address] Not Available 2024 12:18:26 05/22/19 25 05/21/2024 XR, chest , 2 view No observ ation record ed. [email or web address] [facility] [address], [place], [address], 05/23/2024 12:16:39 10/30/19 25 10/29/2024 DEXA, axial skele ton [facility] [address] [place], [place] [id number] [phone] Patien t Name: YOLANDA LOCO BIANCA Access ion #: [id number] Sex: F : 1950 0 Dictat ed By: YOLIE WRIGHT Attend ing Physic marcus: ASIA BYRNES Physic marcus: DORY BETANCOURT Exam Date: 2024 10:07 AM Exam Name: XR DEXA-H IPS PELVIS SPINE Admitt ing Diagno sis(es ): Examin ation: XR DEXA-H IPS PELVIS SPINE Clinic al Indica tion: postme nopaus al state, AP Spine and Dual Femur. Compar jarek: None. Techni que: Bone minera l densit y was evalua mike. Findin gs: 1. Lumbar spine (L1-L4 ): BMD: 1.213 g/cm2 T-Scor e: 0.1 Z-Scor e: 1.8 2. Left Total Hip: BMD: 0.846 g/cm2 T-Scor e: -1.3 Z-Scor e: 0.4 3. Right Total Hip: BMD: 0.819 g/cm2 T-Scor e: -1.5 Page 1 [facility] [address] [id number] Patien t Name: YOLANDA LOCO Access ion #: [id number] Sex: F : 1950 0 Dictat ed By: YOLIE WRIGHT Attend ing Physic marcus: DORY BETANCOURT Orderyaquelin Physic marcus: DORY BETANCOURT ER Exam Date: 2024 10:07 AM Exam Name: XR DEXA-H IPS PELVIS SPINE Admitt ing Diagno sis(es ): Z-Scor e: 0.2 The WHO fractu re risk assess ment (FRAX) was utiliz ed and the 10-yea r probab ility of a major osteop orotic fractu re in this patien t is estima mike to be 13.5%- and 10-yea r probab ility of a hip fractu re in this patien t is estima mike to be 3.5%. Impres tommy: Based on World Health Organi zation (WHO) criter ia, this patien t falls within the range of lower bone densit y/oste openia at bilate ral hip level. Lumbar spine falls within normal range. Relate d Inform ation: 1. The T-scor e is relati ve to peak bone mass in early adulth ood, while the Z-scor e is relati ve to indivi duals of the same age and sex. 2. The paid intern ationa l societ y for Clinic al Densit ometry recomm ends catego rizing the patien t accord ing to the lowest T-scor e from the total L-spin e, total hip and femora l neck utiliz ing the follow ing World Health Organi zation Criter ia: Normal range: T-scor e of - 1.0 or above. Low bone mass: T-scor e of less than-1 .0 but greate r than -2.5. Osteop orosis : T-scor e of -2.5 or below. 3. Depend ing on the above result s, clinic al manage ment may includ e calciu m and vitami n D supple mentat ion, weight bearin g exerci se and drug therap y, includ ing bispho sphona flavia, Evista or hormon al replac ement. Also consid er follow -up DEXA scan in 1-2 years if clinic ally indica mike. Prefer ably this should be done at the same facili ty. More freque nt scanni ng may be requir ed in the settin g of drug-i nduced bone loss or metabo lic bone diseas e. Electr onical ly Signed 025 12:17 KYLE Guevara Electr onical ly Signed by: YOLIE WRIGHT at 2024 12:17: 00 PM Page 3 [email or web address] [facility] (Imaging) [address] [place], [address], 11/06/2024 14:41:59 Result Notes Documentation Provider Name and Address Organization Details Recorded Time Dexa, Axial Skeleton : [facility] [address] [place] [address] Patient Name: HONG LOCO Sex: F : 1950 Dictated By: EVELIA WRIGHT Attending Physician: ASIA POZO Ordering Physician: NOHELIA BETANCOURT Exam Date: 10/29/2024 10:07 AM Exam Name: XR DEXA-HIPS PELVIS SPINE Admitting Diagnosis(es): Examination: XR DEXA-HIPS PELVIS SPINE Clinical Indication: postmenopausal state, AP Spine and Dual Femur. Comparison: None. Technique: Bone mineral density was evaluated. Findings: 1. Lumbar spine (L1-L4): BMD: 1.213 g/cm2 T-Score: 0.1 Z-Score: 1.8 2. Left Total Hip: BMD: 0.846 g/cm2 T-Score: -1.3 Z-Score: 0.4 3. Right Total Hip: BMD: 0.819 g/cm2 T-Score: -1.5 Page 1 [facility] [address] [place] [address] Patient Name: HONG LOCO Sex: F : 1950 Dictated By: EVELIA WRIGHT Attending Physician: NOHELIA BETANCOURT Ordering Physician: NOHELIA BETANCOURT Exam Date: 10/29/2024 10:07 AM Exam Name: XR DEXA-HIPS PELVIS SPINE Admitting Diagnosis(es): Z-Score: 0.2 The WHO fracture risk assessment (FRAX) was utilized and the 10-year probability of a major osteoporotic fracture in this patient is estimated to be 13.5%- and 10-year probability of a hip fracture in this patient is estimated to be 3.5%. Impression: Based on World Health Organization (WHO) criteria, this patient falls within the range of lower bone density/osteopenia at bilateral hip level. Lumbar spine falls within normal range. Related Information: 1. The T-score is relative to peak bone mass in early adulthood, while the Z-score is relative to individuals of the same age and sex. 2. The international society for Clinical Densitometry recommends categorizing the patient according to the lowest T-score from the total L-spine, total hip and femoral neck utilizing the following World Health Organization Criteria: Normal range: T-score of - 1.0 or above. Low bone mass: T-score of less than-1.0 but greater than -2.5. Osteoporosis: T-score of -2.5 or below. 3. Depending on the above results, clinical management may include calcium and vitamin D supplementation, weight bearing exercise and drug therapy, including bisphosphonates, Evista or hormonal replacement. Also consider follow-up DEXA scan in 1-2 years if clinically indicated. Preferably this should be done at the same facility. More frequent scanning may be required in the setting of drug-induced bone loss or metabolic bone disease. Electronically Signed 10/29/2024 12:17 KYLE ALTAMIRANO Page 3 FRANK Farrell [place] [facility] 11/06/2024 14:41:59 Problems Name Problem SNOMED Code Status Onset Date Resolution Date Notes Provider Name and Address Organization Details Recorded Time Injury of lower limb 499068309 Completed Not Available [facility] 3 06:02:36 Backache 434361810 Completed Not Available [facility] 3 06:02:37 Osteoarth ritis of knee 381240406 Active Not Available [facility] 3 06:02:37 Wax in ear canal 654918240 Completed Nohelia Betancourt MD [address], [place], [address] , [facility] 5 12:20:07 Insect bite to arm - nonvenomo 263394691 Completed Not Available [facility] 3 06:02:38 Diverticu lar disease 453093201 Active Not Available [facility] 3 06:02:38 Upper respirato ry infection 77294600 Completed Nohelia Betancourt MD [address], [address], [place], [address] , [facility] 5 15:36:32 Overactiv e urinary bladder 603609274 Active 2019 Not Available [facility] 3 06:02:39 Anemia 268231178 Active 2020 Not Available [facility] 3 06:02:37 Osteopeni a 949731491 Active 2020 Not Available [facility] 3 06:02:38 Insomnia 622863277 Active 2020 Not Available [facility] 3 06:02:37 Pruritic rash 14900144 Completed 202111/18/2021 Not Available [facility] 3 06:02:39 Contact dermatiti s caused by urushiol from [place] 602967480 Completed 202111/18/2021 Not Available [facility] 3 06:02:37 Curly toe 863055637 Completed 202111/18/2021 Not Available [facility] 3 06:02:37 Pain in right foot 59385985630 9107 Completed 202111/18/2021 Not Available [facility] 3 06:02:38 Pain of toe of right foot 85106124473 9101 Completed 202111/18/2021 Not Available [facility] 3 06:02:38 COVID-19 216549417 Completed 202104/15/2022 Martina mcleod RMA null, [place] [facility] 4 11:19:04 Eruption 636871606 Completed 202104/15/2022 Not Available [facility] 3 06:02:38 Postopera tive visit 723499851 Completed 202104/15/2022 Not Available [facility] 3 06:02:37 Ganglion cyst of right hand 26389461074 9107 Active 2021 Not Available [facility] 3 06:02:38 Acute upper respirato ry infection 92997710 Completed 202209/12/2023 Martina mcleod RMA null, [place] - [facility] 4 11:18:53 Cough 90137786 Completed 202209/12/2023 Nohelia Betancourt MD [address] [place] [address], [address] , [place] [facility] 4 09:53:30 Celluliti s of lower limb 490128303 Completed 202209/12/2023 Martina mcleod RMA null, [place] [facility] 4 11:19:01 COVID-19 [id number] Completed 202209/12/2023 Martina mcleod RMA null, [place] [facility] 4 11:19:04 Gastroeso phageal reflux disease 005217336 Active 2023 Martina mcleod RMA null, [place] [facility] 4 11:19:11 Acute urinary tract infection 055430900 Completed 202309/12/2023 Martina mcleod RMA null, [place] [facility] 4 11:18:57 Sinusitis 67478018 Completed 202309/12/2023 Martina mcleod RMA null, [place] [facility] 4 11:19:10 Urinary tract infectiou s disease 52701723 Active 2023 Carol Mays MA null, [facility] [employer] [facility] 4 10:59:16 Upper respirato ry infection 25802042 Active 2024 Nohelia Betancourt MD [address], [address], [place], [address] , [facility] [employer] [facility] 5 15:36:32 Dyspnea 188874037 Active 2024 Carol Mays MA null, [facility] [employer] [facility] 5 12:47:09 Persisten t cough 430991433 Active 2024 Carol Mays MA null, [facility] [employer] [facility] 5 17:14:39 Wax in ear canal 659448575 Active 2024 Nohelia Betancourt MD [address], [address], [place], [address] , [facility] [employer] [facility] [employer] [facility] 5 12:20:06 Intermitt ent vertigo 412016716 Active 2024 Nohelia Betancourt MD [address], [address], [place], [address] , [facility] [employer] [facility] [employer] [facility] 5 12:20:34 Impacted cerumen of bilateral ears 38890067205 03555 Active 2024 MESERET Dubon [address], [address], [place], [address] , [facility] [employer] [facility] [employer] [facility] 5 09:35:39 Problem Notes None recorded. Procedures Surgical History Date Name Laterality Status Provider Name and Address Organization Details Recorded Time 11/22/19 25 Ear Irrigation completed MESERET Dubon [address], [address], [place], [address], [facility] [employer] [facility] 11/26/2024 11:16:51 12/07/19 24 Medicare Wellness CPT Code, subsequent completed Radha Tomlinson RN [facility] [employer] [facility] 12/07/2023 10:04:21 10/16/19 23 Medicare Wellness CPT Code, subsequent completed Amara Faye RN [facility] 10/15/2022 09:31:24 10/23/19 22 Date of Last Mammogram completed Amara Faye RN [facility] 10/15/2022 09:33:25 12/13/19 21 Date of Last Colonoscopy completed Amara Faye RN [facility] 10/15/2022 09:33:47 09/09/19 21 Most Recent Bone Density completed Not Available [facility] 07/07/2022 05:56:18 Imaging Results None recorded. Procedure Notes None recorded. Medical Equipment None Reported. Allergies No known drug allergies Medications Name Sig Start Date Stop Date Status Note LastModified by Organization Details LastModified Time cyclobenz aprine 10 mg tablet TAKE 1 TABLET BY MOUTH NIGHTLY NEEDED FOR MUSCLE SPASM active Not Available Not Available No t Available amoxicill in 500 mg capsule TAKE 1 CAPSULE BY MOUTH THREE TIMES DAILY active Not Available Not Available No t Available Augmentin 875 mg-125 mg tablet Take 1 tablet every 12 hours by oral route for 7 days. 07/12 completed Not Available Not Available Not Available doxycycli ne hyclate 100 mg capsule TAKE 1 CAPSULE BY MOUTH TWICE A DAY FOR 7 DAYS 09/21 completed Not Available Not Available Not Available clindamyc in HCl 300 mg capsule Take 1 capsule 3 times a day by oral route for 7 days. active Not Available Not Available No t Available trazodone 50 mg tablet TAKE 1 TABLET AT BEDTIME 04/16 completed Not Available Not Available Not Available oxybutyni n chloride ER 10 mg tablet,ex tended release 24 hr One tablet Daily 09/21 completed Not Available Not Available Not Available azithromy esmaj 250 mg tablet Take 2 TABLET EVERY DAY by oral route for 1 day. then 1 tab a day for 4 days 12/12 completed Not Available Not Available Not Available ibuprofen 800 mg tablet TAKE 1 TABLET BY MOUTH THREE TIMES A DAY 10/15 completed Not Available Not Available Not Available ofloxacin 0.3 % eye drops INSTILL 1 DROP 3 TIMES DAILY INTO SURGICAL EYE, STARTING 2 DAYS BEFORE, CONTINUI NG FOR 1 WEEK AFTER SURGERY active Not Available Not Available No t Available benzonata te 200 mg capsule TAKE 1 CAPSULE BY MOUTH THREE TIMES A DAY prn 10/04 completed Not Available Not Available Not Available ampicilli n 500 mg capsule active Not Available Not Available Not Available cephalexi n 250 mg capsule TK ONE C PO QID TAT. active Not Available Not Available No t Available hydrocodo ne 5 mg-acetam inophen 325 mg tablet TAKE 1 TABLET BY MOUTH EVERY 4 TO 6 HOURS NEEDED FOR PAIN active Not Available Not Available No t Available meloxicam 15 mg tablet TAKE 1 TABLET BY MOUTH DAILY WITH FOOD active Not Available Not Available No t Available triamcino lone acetonide 0.1 % topical cream APPLY THIN COAT TO AFFECTED AREA TWICE A DAY 09/21 completed Not Available Not Available Not Available ketorolac 0.5 % eye drops INSTILL 1 DROP INTO SURGICAL EYE 3 TIMES DAILY STARTING 2 DAYS BEFORE SURGERY, CONTINUI NG FOR 2 WEEKS AFTER SURGERY active Not Available Not Available No t Available Macrobid 100 mg capsule Take 1 capsule every 12 hours by oral route for 5 days. 05/16 completed per 04/25/24 patient case / ds Not Available Not Available Not Available oxycodone -acetamin ophen 5 mg-325 mg tablet 05/17 completed Not Available Not Available Not Available ofloxacin 0.3 % ear drops INSTILL 5 DROPS INTO AFFECTED EAR(S) TWICE A DAY FOR 10 DAYS 04/17 completed Not Available Not Available Not Available prednisol one acetate 1 % eye drops,ken[place] pension 1 DROP 3 TIMES DAILY INTO SURGICAL EYE, CONTINUI NG FOR 4 WEEKS AFTER CATARACT SURGERY active Not Available Not Available No t Available trazodone 100 mg tablet TAKE 1 TABLET BY MOUTH AT BEDTIME NEEDED 11/27 completed Not Available Not Available Not Available cephalexi n 500 mg capsule Take 1 capsule 3 times a day by oral route. active Not Available Not Available No t Available pantopraz ole 40 mg tablet,de layed release TAKE 1 TABLET BY MOUTH ONCE DAILY IN THE MORNING active Not Available Not Available No t Available trazodone 150 mg tablet TAKE 1 TABLET BY MOUTH TWICE DAILY NEEDED active Not Available Not Available No t Available omeprazol e 20 mg capsule,d elayed release TAKE 1 CAPSULE DAILY 06/27 completed Not Available Not Available Not Available methylpre dnisolone 4 mg tablets in a dose pack TAKE BY MOUTH DIRECTED ON INSIDE OF PACKAGE active Not Available Not Available No t Available albuterol sulfate HFA 90 mcg/actua tion aerosol inhaler INHALE 2 PUFFS BY MOUTH EVERY 4 HOURS NEEDED active Not Available Not Available No t Available hydrocort isone 2.5 % topical ointment APPLY OINTMENT EXTERNAL LY TWICE DAILY TO CORNERS OF MOUTH AND CHIN FOR 2-3 WEEKS active Not Available Not Available No t Available oxybutyni n chloride 5 mg tablet active Not Available Not Available Not Available doxycycli ne hyclate 100 mg tablet Take 1 tablet twice a day by oral route for 7 days. 10/15 completed Not Available Not Available Not Available trospium 20 mg tablet Take 1 tablet by mouth twice daily 2024 active JACK 11/21/24 NOV 04/15/25 ok to rf Not Available Not Available Not Available Vesicare 10 mg tablet TAKE ONE TABLET DAILY active Not Available Not Available No t Available Golytely 236 gram-22.7 4 gram-6.74 gram-5.86 gram oral solution DRINK AN 8OZ GLASS EVERY 15 MINUTES STARTING AT 5:00PM UNTIL BOTTLE IS COMPLETE 11/03 completed Not Available Not Available Not Available oxycodone 10 mg tablet TAKE 1/2 TO 1 (ONE-FAITH F TO ONE) TABLET BY MOUTH EVERY 4 HOURS NEEDED FOR PAIN active Not Available Not Available No t Available Toviaz 8 mg tablet,ex tended release TAKE ONE TABLET DAILY 06/27 completed Not Available Not Available Not Available Gavilyte- C 240 gram-22.7 2 gram-6.72 gram-5.84 gram oral solution START DRINKING 8 OZ GLASSES AT 5 PM THE NIGHT BEFORE COLONOSC OPY. DRINK UNTIL GONE active Not Available Not Available No t Available Vagifem 10 mcg vaginal tablet active Not Available Not Available Not Available Suprep Bowel Prep Kit 17.5 gram-3.13 gram-1.6 gram oral solution DIRECTED 11/03 completed Not Available Not Available Not Available Shingrix (PF) 50 mcg/0.5 mL intramusc ular suspensio n, kit 10/07 completed Not Available Not Available Not Available Fluzone High-Dose Quad 2020- (PF) 240 mcg/0.7 mL IM syringe PHARMACY ADMINIST EREShireen 05/20 completed Not Available Not Available Not Available Paxlovid 300 mg (150 mg x 2)-100 mg tablets in a dose pack Take 1 dose pk by oral route. 01/24 completed Not Available Not Available Not Available Vitals Date Recorded Body mass index (BMI) Body weight Body temperature Heart rate Oxygen saturation Oxygen saturation in Arterial blood by Pulse oximetry Systolic And Diastolic Provider Name and Address Organization Details Last Updated DateTime 5 27.4 kg/m2 36227.8 6 g 97.4 [degF] 86 /min 97 % 97 % 108/54 mm[Hg] YVONNE Velasco [employer] [facility] [employer] 5 15:05:51 Date Recorded Body height Provider Name an d Address Organization Details Last Updated DateTime 05/16/2024 157.48 cm Martha Mariano [employer] [facility] 05/16/2024 15:01:09 Date Recorded Body height Body mass index (BMI) Body weight Body temperature Heart rate Oxygen saturation Oxygen saturation in Arterial blood by Pulse oximetry Systolic And Diastolic Provider Name and Address Organization Details Last Updated DateTime 5 157.48 cm 27.8 kg/m2 90519.0 4 g 97.3 [degF] 86 /min 96 % 96 % 110/76 mm[Hg] Martha gambino [employer] [facility] [employer] 5 15:53:29 Date Recorded Body height Body mass index (BMI) Body weight Body temperature Respiratory rate Oxygen saturation Oxygen saturation in Arterial blood by Pulse oximetry Heart rate Systolic And Diastolic Provider Name and Address Organization Details Last Updated DateTime 5 157.48 cm 28.3 kg/m2 71369.8 2 g 97.6 [degF] 16 /min 96 % 96 % 80 /min 122/78 mm[Hg] Tala Treadwell [employer] [facility] 5 10:17:34 Date Recorded Body height Body mass index (BMI) Body weight Oxygen saturation Oxygen saturation in Arterial blood by Pulse oximetry Heart rate Body temperature Systolic And Diastolic Provider Name and Address Organization Details Last Updated DateTime 5 157.48 cm 28 kg/m2 24302.6 3 g 97 % 97 % 82 /min 97.6 [degF] 126/84 mm[Hg] Martha Joon [facility] 5 11:48:31 Date Recorded Body height Body mass index (BMI) Body weight Body temperature Heart rate Oxygen saturation Oxygen saturation in Arterial blood by Pulse oximetry Systolic And Diastolic Provider Name and Address Organization Details Last Updated DateTime 5 157.48 cm 28 kg/m2 92571.6 3 g 97.7 [degF] 77 /min 97 % 97 % 120/64 mm[Hg] Martina Faustina YVONNE [employer] 5 09:20:22 Social History Question Answer Notes LastModified by Organization Details LastModified Time Tobacco Smoking Status Former Smoker Quit 40+yrs ago Not Available [facility] 07/07/2022 05:54:52 Do You Have An Advance Directive? Yes MIGRATION.0301 [id number] Information not available 07/07/2022 How Many Years Have You Consumed Alcohol? 20 [email or web address] Information not available 12/07/2023 Are You Blind Or Do You Have Difficulty Seeing? No MIGRATION.0301 [id number] Information not available 07/07/2022 Is Blood Transfusion Acceptable In An Emergency? Yes [email or web address] Information not available 12/07/2023 What Is Your Level Of Caffeine Consumption? Occasional MIGRATION.0301 [id number] Information not available 07/07/2022 How Much Tobacco Do You Chew? None MIGRATION.0301 [id number] Information not available 07/07/2022 What Is Your Code Status? Full Code [email or web address] Information not available 12/07/2023 Are You Deaf Or Do You Have Serious Difficulty Hearing? No MIGRATION.0301 [id number] Information not available 07/07/2022 What Type Of Diet Are You Following? REGULAR MIGRATION.0301 [id number] Information not available 07/07/2022 Which Illicit Or Recreational Drugs Have You Used? None MIGRATION.030 [id number] Information not available 07/07/2022 What Is The Highest Grade Or Level Of School You Have Completed Or The Highest Degree You Have Received? [id number] MIGRATION.[id number] Information not available 07/07/2022 How Many Days Of Moderate To Strenuous Exercise, Like A Brisk Walk, Did You Do In The Last 7 Days? 7 [email or web address] Information not available 12/07/2023 On Those Days That You Engage In Moderate To Strenuous Exercise, How Many Minutes, On Average, Do You Exercise? 10 [email or web address] Information not available 12/07/2023 Have There Been Any Changes To Your Family Or Social Situation? No [email or web address] Information not available 12/07/2023 What Is The Fluoride Status Of Your Home? Fluoridated MIGRATION.0301 [id number] Information not available 07/07/2022 When Did You Quit Smoking? 16+yearssincelastc igarette [email or web address] Information not available 10/15/2022 Are There Any Guns Present In Your Home? No MIGRATION.0301 [id number] Information not available 07/07/2022 Do You Use Insect Repellent Routinely? No [email or web address] Information not available 12/07/2023 Where Do You Live? SingleLevelHouse [email or web address] Information not available 12/07/2023 Presence Of Domestic Violence No [email or web address] Information not available 10/15/2022 Guns Present In The Home? No [email or web address] Information not available 12/07/2023 Are You Able To Care For Yourself? Yes [email or web address] Information not available 10/15/2022 Are You Blind Or Do Yo Have Difficulty Seeing? No [email or web address] Information not available 10/15/2022 Are You Deaf Or Do You Have Serious Difficulty Hearing? No Information not available 10/15/2022 General Stress Level? Low [email or web address] Information not available 12/07/2023 Live Alone Of With Others? With Others Information not available 10/15/2022 Are You Following A Low Salt Diet? No [email or web address] Information not available 12/07/2023 Do You Have A Medical Power Of Air Value Tester? Yes [email or web address] Information not available 12/07/2023 What Was The Date Of Your Most Recent Tobacco Screening? 12/07/2023 [email or web address] Information not available 12/07/2023 How Many Children Do You Have? 4 [email or web address] Information not available 12/07/2023 Have You Ever Been Counseled For Unhealthy Alcohol Use? No [email or web address] Information not available 12/07/2023 Do You Have Any Pets? Yes [email or web address] Information not available 12/07/2023 What Is Your Relationship Status? [email or web address] Information not available 10/15/2022 Do You Use Your Seat Belt Or Car Seat Routinely? Yes MIGRATION.0301 [id number] Information not available 07/07/2022 Are You Sexually Active? No [email or web address] Information not available 12/07/2023 Do You Have Smoke And Carbon Monoxide Detectors In Your Home? Yes MIGRATION.0301 [id number] Information not available 07/07/2022 At What Age Did You Start Smoking Tobacco? 18 MIGRATION.0301 577075 Information not available 07/07/2022 Are You Passively Exposed To Smoke? No MIGRATION.0301 527703 Information not available 07/07/2022 Are There Any Smokers In Your House? No MIGRATION.0301 321253 Information not available 07/07/2022 How Much Tobacco Do You Smoke? 0.5 PPD MIGRATION.0301 829740 Information not available 07/07/2022 What Types Of Sporting Activities Do You Participate In? None [email or web address] Information not available 12/07/2023 Do You Use Sunscreen Routinely? Yes MIGRATION.0301 312037 Information not available 07/07/2022 Has Tobacco Cessation Counseling Been Provided? No [email or web address] Information not available 12/07/2023 How Many Years Have You Smoked Tobacco? 3 [email or web address] Information not available 12/07/2023 Have You Recently Traveled Abroad? No [email or web address] Information not available 12/07/2023 Do You Have Difficulty Walking Or Climbing Stairs? No MIGRATION.0301 [id number] Information not available 07/07/2022 Do You Have Any Dietary Restrictions? Yes Lactose Intollerant [email or web address] Information not available 12/07/2023 How Many Days In The Past Year Have You Consumed 4 Or More Drinks? 0 [email or web address] Information not available 12/07/2023 Sex: Female Functional Status Question Answer Note LastModified by Organizat ion Details LastModified Time Do you use any illicit or recreational drugs? No [email or web address] Information not available 12/07/2023 Do you or have you ever used any other forms of tobacco or nicotine? No [email or web address] Information not available 12/07/2023 What is your level of alcohol consumption? Occasional MIGRATION.38819 09759 Information not available 07/07/2022 Are you currently employed? No [email or web address] Information not available 12/07/2023 Do you have transportation difficulties? No MIGRATION.33067 80661 Information not available 07/07/2022 Are you able to walk independently without assistance or assistive devices? YESWOREST MIGRATION.53206 25007 Information not available 07/07/2022 Do you have difficulty doing errands alone? No MIGRATION.74540 46940 Information not available 07/07/2022 Are you able to care for yourself independently? 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 No MIGRATION.41438 52718 Information not available 07/07/2022 What is your exercise level? Moderate walks every day MIGRATION.43021 75315 Information not available 07/07/2022 Mental Status Question Answer Note LastModified by Organizat ion Details LastModified Time Do you feel stressed (tense, restless, nervous, or anxious, or unable to sleep at night)? [id number] [email or web address] Information not available 12/07/2023 Do you have difficulty concentrating, remembering or making decisions? No MIGRATION.[id number] 26 Information not available 07/07/2022 Family History Relationship Description Onset Age of this Age Resolved Age Notes LastModified by Organization Details LastModified Time Father Tuberculosis MIGRATION.0 30 [id number] Not available 07/07/2022 05:56:25 Mother Malignant neoplastic disease MIGRATION.312 [id number] Not available 07/07/2022 05:56:25 Mother Depressive disorder MIGRATION.280 [id number] Not available 07/07/2022 05:56:25 Medical History No medical history recorded. Gynecological History Statement/Question Response Date of Last Mammogram 10/22/2021 Date of Last Colonoscopy 12/12/2020 Date of Last Mammogram 10/22/2021 Most Recent Bone Density 09/08/2020 Obstetrics History GPAL:G 0 P 0 0 0 0 Immunizations Vaccine Type Date Status Note Provider Nam e and Address Organization Details Recorded Time SARS-COV-2 (COVID-19) vaccine, UNSPECIFIED completed Not Available [facility] 07/07/2022 06:08:11 SARS-COV-2 (COVID-19) vaccine, UNSPECIFIED 1 completed Not Available [facility] 07/07/2022 06:08:11 SARS-COV-2 (COVID-19) vaccine, UNSPECIFIED 1 completed Not Available [facility] 07/07/2022 06:08:12 Influenza, high-dose, trivalent, PF 0 completed Not Available [facility] 07/07/2022 06:08:12 zoster, unspecified formulation 0 completed Not Available [facility] 07/07/2022 06:08:12 zoster recombinant 9 completed Not Available [facility] 07/07/2022 06:08:12 Tdap 2 completed Not Available [facility] 07/07/2022 06:08:12 Influenza, high-dose, quadrivalent, PF 1 completed Not Available [facility] 07/07/2022 06:08:12 Td (adult), 5 Lf tetanus toxoid, preservative free, adsorbed 6 completed Not Available [facility] 07/07/2022 06:08:12 pneumococcal polysaccharide PPV23 9 completed Not Available [facility] 07/07/2022 06:08:12 Pneumococcal conjugate PCV 13 5 completed Not Available [facility] 07/07/2022 06:08:12 Past Encounters Encounter ID Performer Location Encounter Start Date Encounter Closed Date Diagnosis/Indication Diagnosis SNOMED-CT Code Diagnosis ICD10 Code Diagnosis IMO Codes Diagnosis Note [id number] MD REED [facility] [address] [place] [address] 11/03/2020 00:00:00 11/03/2020 12:39:43 [id number] MD REED [facility] [address] [place] [address] 04/17/2021 00:00:00 04/17/2021 13:43:59 [id number] MD REED [facility] [address] [place] [address] 08/10/2021 00:00:00 08/10/2021 11:09:49 [id number] Nohelia Betancourt MD [facility] [address] [facility] [place] [address] 09/09/2021 00:00:00 09/09/2021 10:57:29 [id number] Nohelia Betancourt MD [facility] [address] [facility] [place] [address] 10/15/2021 00:00:00 10/15/2021 09:44:15 [id number] [facility] [place] [address] [place] [address] 11/02/2021 00:00:00 11/02/2021 13:38:15 [id number] Nohelia Betancourt MD [facility] [address] [facility] [place] [address] 12/23/2021 00:00:00 12/23/2021 12:50:21 [id number] [facility] [place] [address] [place] [address] 01/07/2022 00:00:00 01/11/2022 14:42:18 [id number] [facility] [place] [address] [place] [address] 01/14/2022 00:00:00 01/14/2022 12:37:09 [id number] Nohelia Betancourt MD [facility] [address] [facility] [place] [address] 02/22/2022 00:00:00 02/22/2022 11:48:56 [id number] Nohelia Betancourt MD [facility] [address] [place] [address] 04/16/2022 00:00:00 04/16/2022 10:01:03 [id number] Nohelia Betancourt MD [facility] [address] [place] [address] 09/21/2022 14:35:55 09/21/2022 15:18:41 Cellulitis of lower limb 801648986 L03.119 [id number] Nohelia Betancourt MD [facility] Internal Med [address] [facility] [place] [address] 10/15/2022 09:01:17 10/15/2022 09:52:21 Overactive urinary bladder 512835671 N32.81 not on meds any more Insomnia 393953729 G47.0 0 better with meds Osteoarthr itis of knee 236113632 M17.9 otc helps, Anemia 256664878 D64.9 Osteopenia 013284567 M85 .80 on ca / vit d Adult heal th examination 993077797 Z00.00 gets colonoscop y- has had in 12/2020 - [facility]- 09/[facility], orderedpne umovax- 03/21/2019 Prevnar - 03/28/2015 Tetanus shot- 08/28/2015 FLU- 2COV ID- 06/13/2020 , 07/11/2020 , 03/26/2021 , 02/2022Her pes Zoster 2019 Screening for disorder 086081994 Z13.9 [id number] Nohelia Betancourt MD [facility] Internal Med [address] [facility] [place] [address] 04/18/2023 09:28:32 04/18/2023 09:59:48 Insomnia 718452647 G47.00 better with meds Overactive urinary bladder 399445665 N32.81 meds help Osteoarthr itis of knee 572162765 M17.9 otc helps, Anemia 084488914 D64.9 improved Osteopenia 895152563 M85 .80 on ca / vit d Adult heal th examination 717553262 Z00.00 gets colonoscop y- has had in 12/2020 - [facility]/28Dexa- 11/28pneumo vax- 03/21/2019 Prevnar - 03/28/2015 Tetanus shot- 08/28/2015 FLU- 2COV ID- 06/13/2020 , 07/11/2020 , 03/26/2021 , 02/2022Her pes Zoster 2019 [id number] Nohelia Betancourt MD [facility] [address] [facility] [place] [address] 09/12/2023 10:59:11 09/12/2023 11:43:14 Pre-surgery evaluation 145973559 Z01.818 EKG nl, cbc, cmp nl, low risk Insomnia 118577424 G47.0 0 meds help Overactive urinary bladder 289200847 N32.81 meds help Osteoarthr itis of knee 932315612 M17.9 otc helps, Anemia 425749458 D64.9 improved Osteopenia 248986009 M85 .80 on ca / vit d Adult heal th examination 467916625 Z00.00 gets colonoscop y- has had in 12/2020 - Dr. Leung- [facility]Dex[facility]- 11/28pneumo vax- 03/21/2019 Prevnar 13- 03/28/2015 Tetanus shot- 08/28/2015 FLU- 2COV ID- 06/13/2020 , 07/11/2020 , 03/26/2021 , 02/2022Her pes Zoster 2019 Cough [id number] R05.9 [id number] Nohelia Betancourt MD [facility] Internal Med [address] [facility] [place] [address] 12/07/2023 09:24:38 12/07/2023 10:18:28 Insomnia [id number] G47.00 better with meds Overactive urinary bladder 506639117 N32.81 meds help Osteoarthr itis of knee 085756990 M17.9 otc Anemia 211705069 D64.9 improved Osteopenia 040771518 M85 .80 on ca / vit d Adult heal th examination 894255128 Z00.00 Colonoscop y- has had in 12/2020 - Dr. Leung- report in [facility] gram- 11/28, alreday scheduled in 01/30Dexa- 11/28Pneumo vax- 03/21/2019 Prevnar - 03/28/2015 Tetanus shot- 08/28/2015 FLU- 2COV ID- 06/13/2020 , 07/11/2020 , 03/26/2021 , 02/2022Her pes Zoster 2019 History of right total knee replacement 6486827447 350377 Z96.651 recovering Screening for disorder 370306858 Z13.9 [id number] Nohelia Betancourt MD [facility] Internal Med [facility] [address] [facility] [place] [address] 05/16/2024 14:40:55 05/16/2024 15:42:12 Upper respiratory infection 00113738 J06.9 she ia taking amoxi and mucinex, keep taking [id number] Nohelia Betancourt MD [facility] Internal Med [facility] [address] [facility] [place] [address] 07/16/2024 15:44:17 07/16/2024 16:09:54 Overactive urinary bladder 190491414 N32.81 keep the same meds Insomnia 293195362 G47.0 0 better with meds Osteoarthr itis of knee 873005359 M17.9 otc Anemia 193387948 D64.9 improved Osteopenia 842996791 M85 .80 on ca / vit d Adult heal th examination 798036126 Z00.00 Colonoscop y- has had in 12/2020 - Dr. Leung- report in chartMammo gram- 05/01Dexa- 11/28Pneumo vax- 03/21/2019 Prevnar - 03/28/2015 Tetanus shot- 08/28/2015 FLU- 2COV ID- 06/13/2020 , 07/11/2020 , 03/26/2021 , 02/2022Her pes Zoster 2019 History of right total knee replacement 1412936020 240756 Z96.651 doing well Gastroesop hageal reflux disease 697760322 K21.9 meds help [id number] Nohelia Betancourt MD [facility] Internal Med [facility] [address] [place] [address] 10/22/2024 10:04:18 10/22/2024 11:46:25 Overactive urinary bladder 339948188 N32.81 under control Insomnia 701044777 G47.0 0 better with meds Osteoarthr itis of knee 320607472 M17.9 otc Anemia 956462990 D64.9 improved Osteopenia 120265219 M85 .80 on ca / vit d Adult heal th examination 610174465 Z00.00 Colonoscop y- has had in 12/2020 - Dr. Leung- report in chartMammo gram- 05/01Dexa- 11/28Pneumo vax- 03/21/2019 Prevnar 13- 03/28/2015 Tetanus shot- 08/28/2015 FLU- 2COV ID- 06/13/2020 , 07/11/2020 , 03/26/2021 , 02/2022Her pes Zoster 2019 History of right total knee replacement [id number] 917412 Z96.651 Gastroesop hageal reflux disease 601228917 K21.9 meds help Long-term current use of drug therapy 145515672 Z79.899 [id number] Postmenopausal state 764 82509 Z78.0 [id number] Nohelia Betancourt MD [facility] Internal Med [facility] [address] [facility] [place] [address] 11/13/2024 11:42:46 11/13/2024 14:00:57 Wax in ear canal 758657991 H61.20 26130 needs cleaning after using drops Intermittent vertigo 103 528504 R42 429232 could be related to wax, clean the ears and see how much improvemen t she gets. [id number] Nohelia Betancourt MD [facility] Internal Med [address] [facility] [place] [address] 11/21/2024 09:15:27 11/21/2024 09:33:42 Impacted cerumen of bilateral ears 0651101416 861200 H61.23 [id number] Bilateral ears cleaned and TMs visible and reactive to light at this time. Health Concerns Section Related Observation LastModified by Organization Detai ls LastModified Time None Recorded Concern Status LastModified by Organization Details LastModified Time None Recorded Advance Directives Directive Y: Payers Insurance Date Sequence Insurance Name Policy Number Policy Barnett Covered Member ID Barnett Member ID Guarantor Name 12/10/2024 2 [employer] [place] [employer] [place] (MEDICARE SUPPLEMENT) Hong Loco [id number] Hong Loco 12/10/2024 1 [place] Hong Loco [id number] Hong Loco 12/10/2024 2 [employer] (MEDICARE SUPPLEMENT) Hong Loco [id number] Hong Loco Notes Date Note Type Note Provider Name and Address Organization Details Recorded Time 05/16/2024 text/html ROS as noted in the HPI Pt is here today for a deep cough and pain on the left side in the congregation area. Cough is productive and yellow in color. No fever.no nasal congestionno post nasal drainage Nohelia Betancourt MD [address], [place], [address], [employer] 05/16/2024 15:39:18 07/16/2024 text/html Doing fine, compliant to medications, no side affects, here for follow up. Pt is not fasting* * Medicare GERD, better with meds, takes prnMeds- Pantoprazole 40 mg qd prn Sleeping better with Trazodone, needs dailyMeds- Trazodone 100 mg @ hs Overactive bladder- better with meds, oxybutynin did not helpMeds- Trospium 20 mg qd Osteoarthritis/ knee/ right shoulder pain, s/p right TKA 10/30, recovering, was on celebrex, now takes otc ibuprofen Osteopenia- to take ca with vit d, dexa 11/28 Anemia- nl iron, b12, improved Colon polyp- colonoscopy 12/27, next in 5 yrs Nohelia Betancourt MD [address], [place], [address], [employer] 07/16/2024 16:08:52 10/22/2024 text/html Doing fine, compliant to medications, no side affects, here for follow up. Pt is not fasting* * Medicare GERD, better with meds, takes prnMeds- Pantoprazole 40 mg qd prn Hyperlipidemia- mild, advised to watch diet Sleeping better with Trazodone, needs dailyMeds- Trazodone 100 mg @ hs Overactive bladder- better with meds, oxybutynin did not helpMeds- Trospium 20 mg qd Osteoarthritis/ knee/ right shoulder pain, s/p right TKA 10/30, Osteopenia- ca with vit d, dexa 11/28, due Anemia- nl iron, b12, improved Colon polyp- colonoscopy 12/27, next in 5 yrs Nohelia Betancourt MD [address] [facility] [address], [place], [address], [employer] 10/22/2024 10:56:29 11/13/2024 text/html ROS as noted in the HPI pt is here today for dizziness, and PT states a buzzing sound off and on in the middle of her head NOT HER EARS- onset 3 months. It last half the day., Hard to sleep bc of the buzzing. does not affect hearing or eye sight. some times feels dizziness to the point like drunkno nausea or vomiting no visual problem Nohelia Betancourt MD [address], [place], [address], [employer] 11/13/2024 12:22:06 11/21/2024 text/html ROS as noted in the HPI Patient is a 73y/old female who is here for bilateral ear irrigation at this time. Patient denies any additional concerns at this time. MESERET Dubon [address] [employer], [place], [address], [facility] 11/26/2024 11:17:46 OBGyn Episode No OBEpisode recorded.
[2025-03-11 02:18] VITALS: BP 155/70; PULSE 85; RESP 19; O2SAT 100
[2025-03-11 02:57] LABS: Add Urine Microscopic? YES; Appearance Urine Clear (Clear); Glucose Urine UA Negative (Negative); Leukocyte Esterase Ur Negative LEU/UL (Negative); Nitrate Urine Negative (Negative); Non Pathogenic Casts 0-2; Specific Grav Ur 1.007 (1.001-1.035)
--- NOTE | 2025-03-11 02:57 | ED.FEMALEGU ---
HPI - Female Genitourinary General Chief complaint: Urogenital-Female Stated complaint: URINARY PAIN X2D Time Seen by Provider: 03/11/25 02:22 History of Present Illness HPI Narrative: 74-year-old female presenting to the emergency department with dysuria and frequency for last 2 days associated with painful urination and now not able to urinate at all throughout the day. States this is not happened to her previously. No history of urinary tract infections or obstructions. Was otherwise in her normal state of health. No recent medication changes. No recent opiates or constipation. No recent antibiotics. States she was having spasms sensations and difficulty initiating any urinary stream but prior to that 2 days ago she was urinating very frequently. No traumatic injuries and no other symptoms such as fever, chills, upper abdominal pain, nausea, vomiting, back pain. Related Data Home Medications ?Medication ?Instructions ?Recorded ?Confirmed ?Last Taken ?Type zntpausoqzsi-Fd-hszo-minerals 18 1 tablet PO DAILY 09/25/19 11/28/20 12/10/20 History mg-0.4 mg tablet oxybutynin chloride 10 mg 10 mg PO DAILY 08/26/20 11/28/20 12/10/20 History tablet,extended release 24 hr pantoprazole 40 mg tablet,delayed 40 mg PO QAM 08/26/20 11/28/20 12/10/20 History release trazodone 100 mg tablet 100 mg PO QHS PRN Insomnia 08/26/20 11/28/20 12/10/20 History ibuprofen 800 mg tablet 800 mg PO HS 11/25/20 11/28/20 12/10/20 History psyllium husk 3.4 gram/5.4 gram 1 tbsp PO BID 11/25/20 11/28/20 12/10/20 History oral powder (Metamucil) Allergies Allergy/AdvReac Type Severity Reaction Status Date / Time No Known Allergies Allergy Verified 03/11/25 01:04 Review of Systems Review of Systems: As reviewed above in HPI [facility] Past Medical History Medical History Osteoarthritis Social History Social History Smoking status: Former smoker Tobacco type: cigarettes Alcohol intake: never Substance use: never Living arrangements: with family Gender identity (if verbalized by the patient): Female Spiritual care concerns: No Exam Narrative: GENERAL: [Well-appearing, well-nourished, and in no acute distress.] HEAD: [Normocephalic, atraumatic.] EYES: [PERRLA and EOMI.] ENT: Nares clear, no rhinorrhea or epistaxis. Mucous membranes moist. NECK: Supple. CHEST: [Clear to auscultation. No respiratory distress.] HEART: [Regular rate and rhythm]. No murmur heard. [Normal peripheral pulses.] ABDOMEN: Suprapubic tenderness and fullness but otherwise no rigidity guarding or peritonitis. No other tenderness reproducible or masses palpated EXTREMITIES: Normal range of motion. [No edema.] SKIN: Warm, dry, no rash. NEURO: [No focal deficits]. Alert and oriented [x3.] PSYCH: [Normal mood and affect.] Course Vital Signs Vital signs: Vital Signs Temperature 36.3 C L 03/11/25 01:05 Pulse Rate 76 03/11/25 01:05 Respiratory Rate 16 03/11/25 01:05 Blood Pressure 148/80 H 03/11/25 01:05 Pulse Oximetry 100 03/11/25 01:05 Oxygen Delivery Room Air 03/11/25 01:05 Temperature 36.3 C L 03/11/25 01:05 Pulse Rate 84 03/11/25 04:48 Respiratory Rate 18 03/11/25 04:48 Blood Pressure 155/70 H 03/11/25 02:18 Pulse Oximetry 98 03/11/25 04:48 Oxygen Delivery Room Air 03/11/25 01:05 MDM - Female Genitourinary MDM Narrative Medical decision making narrative: 74-year-old female presenting to the emergency department with dysuria and frequency for last 2 days associated with painful urination and now not able to urinate at all throughout the day. States this is not happened to her previously. No history of urinary tract infections or obstructions. Was otherwise in her normal state of health. No recent medication changes. No recent opiates or constipation. No recent antibiotics. States she was having spasms sensations and difficulty initiating any urinary stream but prior to that 2 days ago she was urinating very frequently. No traumatic injuries and no other symptoms such as fever, chills, upper abdominal pain, nausea, vomiting, back pain. Patient has suprapubic fullness and tenderness. Bladder scan showed greater than 900 cc of fluid. Vital signs are normal. Consistent with acute urinary retention. Suspect urinary tract infection or cystitis given the hesitancy urgency and urinary pain she was having 2 days ago now followed by inability to urinate. Akdins catheter was placed with immediate drainage of clear yellow urine. Will be sent for urinalysis. Discussed with patient options including retaining Adkins catheter for Urology follow-up versus trial of void here. Will wait for urine results to see if we need to treat with antibiotics. Patient does not have evidence of urinary infection. Discussed with her trial of void here versus trial of void with outpatient Urology follow-up. Patient would prefer to go home and follow-up with Dr. Washington in urology clinic. Given leg back for fall and safe for discharge home at this time with return precautions. Medical Records Attestation: I reviewed the patient's medical records. Lab Data Attestation: I reviewed the patient's lab results. Labs: Lab Results 03/11/25 Range/Units 02:41 Urine Color Yellow (Yellow) Urine Appearance Clear (Clear) Urine pH 7.0 (5.0-9.0) Ur Specific [place] 1.007 (1.001-1.035) Urine Protein Negative (Negative) mg/dL Urine Glucose (UA) Negative (Negative) mg/dL Urine Ketones Negative (Negative) mg/dL Ur Blood (Man) Trace (Negative) Urine Nitrate Negative (Negative) Urine Bilirubin Negative (Negative) Urine Urobilinogen 0.2 (<2.0) mg/dL Leukocyte Esterase Rfl Negative (Negative) BRUCE/UL Urine RBC 3-5 H (0-2) /hpf Urine WBC 0-5 (0-3) /hpf Ur Squamous Epith Cells None seen (Few) /hpf Urine Bacteria None seen /hpf Urine Casts 0-2 Discharge Plan Discharge Clinical Impression: Acute urinary retention Patient Disposition: Home Condition: Stable Instructions: Antibiotic Form, Acute Urinary Retention in Women (ED) Additional Instructions: Follow-up with the urologist office this week. Return with any emergent concerns. Patient Language: Syrian Prescriptions: No Action oxybutynin chloride 10 mg tablet extended release 24hr 10 mg PO DAILY trazodone 100 mg tablet 100 mg PO QHS PRN (Reason: Insomnia) pantoprazole 40 mg tablet,delayed release (DR/EC) 40 mg PO QAM wufapadizjfi-Lf-kamr-minerals 18-0.4 mg tablet 1 tablet PO DAILY ibuprofen 800 mg tablet 800 mg PO HS Metamucil 3.4 gram/5.4 gram powder 1 tbsp PO BID Rx Instructions: mix into at least 8 oz of water or juice before administering Follow-up/Referrals: Rustam,Deonte Galindo MD [Primary Care Provider, Unknown] Dave Washington MD [Physician, Urology] - 2 Days Referral Note: Urinary retention Time of Disposition: 04:10
[2025-03-11 04:48] VITALS: PULSE 84; RESP 18; O2SAT 98
== END 2025-03-11 04:46 | disposition home or self-care (01) ==
PROVIDERS: Emergency Provider Student in an Organized Health Care Education/Training Program; PCP Internal Medicine
DX: R33.9 Retention of urine, unspecified (principal); M19.90 Unspecified osteoarthritis, unspecified site
CPT/HCPCS: 51702; 81001; 99283

== ENCOUNTER 2025-03-12 18:19 | Emergency (ER) | payer MEDICARE, OTHER, SELFPAY ==
[2025-03-12 23:18] VITALS: BP 138/65; PULSE 77; RESP 16; TEMP 36.9; O2SAT 99
--- NOTE | 2025-03-12 23:30 | ED.GENADULT ---
HPI - General Adult General Chief complaint: Urogenital-Female Stated complaint: blood in urine Time Seen by Provider: 03/12/25 22:20 History of Present Illness HPI narrative: This is a 74-year-old female presenting with blood in her urine. She is in 2 days ago for urinary retention. Bernard catheter was placed at that time. Urinalysis was negative for infection. Since then she notes that her urine has become very dark and red tinged. She has also had some irritation in her urethra and some leakage around the catheter. She denies any fevers, abdominal pain, or flank pain. She sees Urology next week. Related Data Home Medications ?Medication ?Instructions ?Recorded ?Confirmed ?Last Taken ?Type kxqhodwrgpjy-Tu-fsqp-minerals 18 1 tablet PO DAILY 09/25/19 11/28/20 12/10/20 History mg-0.4 mg tablet oxybutynin chloride 10 mg 10 mg PO DAILY 08/26/20 11/28/20 12/10/20 History tablet,extended release 24 hr pantoprazole 40 mg tablet,delayed 40 mg PO QAM 08/26/20 11/28/20 12/10/20 History release trazodone 100 mg tablet 100 mg PO QHS PRN Insomnia 08/26/20 11/28/20 12/10/20 History ibuprofen 800 mg tablet 800 mg PO HS 11/25/20 11/28/20 12/10/20 History psyllium husk 3.4 gram/5.4 gram 1 tbsp PO BID 11/25/20 11/28/20 12/10/20 History oral powder (Metamucil) Allergies Allergy/AdvReac Type Severity Reaction Status Date / Time No Known Allergies Allergy Verified 03/11/25 01:04 [facility] Past Medical History Medical History Osteoarthritis Social History Social History Tobacco type: cigarettes Alcohol intake: never Substance use: never Living arrangements: with family Gender identity (if verbalized by the patient): Female Spiritual care concerns: No Exam Narrative: APPEARANCE: No apparent distress. Head: atraumatic. EYES: EOMI, NOSE: Atraumatic NECK: Trachea midline RESPIRATORY: No increased rate of breathing CARDIOVASCULAR: RRR, ABDOMINAL: Non-distended Soft nontender no guarding or rebound point of care bladder ultrasound: showed a completely depressed bladder MUSCULOSKELETAl: No obvious deformities NEURO: Alert. Moving 4/4 extremities SKIN:: Warm, dry. Normal color PSYCHIATRIC: Normal affect Course Vital Signs Vital signs: Vital Signs Temperature 98.5 F 03/12/25 23:18 Pulse Rate 77 03/12/25 23:18 Respiratory Rate 16 03/12/25 23:18 Blood Pressure 138/65 03/12/25 23:18 Pulse Oximetry 99 03/12/25 23:18 Temperature 98.5 F 03/12/25 23:18 Pulse Rate 77 03/12/25 23:18 Respiratory Rate 16 03/12/25 23:18 Blood Pressure 138/65 03/12/25 23:18 Pulse Oximetry 99 03/12/25 23:18 Medical Decision Making MDM Narrative Medical decision making narrative: -Course: 74-year-old female presenting with concerns about her catheter. She is now having hematuria without clots. Point of care ultrasound showed a collapsed bladder with no retention. Urine with 21-50 white blood cells, +2 leuk esterase and rbc's. True infection is difficult to determine due to the catheter. patient was placed on Bactrim while awaiting culture results. Patient will follow-up with urology. Given return precautions for signs of infection. -DDX includes but is not limited to: hematuria, uti, discomforts of bernard, bladder spasm Vital Signs Vital Signs: Vital Signs Temperature 98.5 F 03/12/25 23:18 Pulse Rate 77 03/12/25 23:18 Respiratory Rate 16 03/12/25 23:18 Blood Pressure 138/65 03/12/25 23:18 Pulse Oximetry 99 03/12/25 23:18 Temperature 98.5 F 03/12/25 23:18 Pulse Rate 77 03/12/25 23:18 Respiratory Rate 16 03/12/25 23:18 Blood Pressure 138/65 03/12/25 23:18 Pulse Oximetry 99 03/12/25 23:18 Discharge Plan Discharge Clinical Impression: Hematuria Patient Disposition: Home Condition: Stable Instructions: Antibiotic Form, Bernard Catheter Placement and Care (ED), Dysuria (ED) Additional Instructions: You were seen in the emergency department for hematuria. Please complete the antibiotics as instructed. Your culture results will return over the next several days and can be followed by Dr. Washington. If you develop fevers flank pain or severe abdominal pain, or your Bernard stops draining please return to the ED for re-evaluation. Patient Language: Croatian Prescriptions: New sulfamethoxazole-trimethoprim 800-160 mg tablet 1 tablet PO Q12H Qty: 14 0RF No Action oxybutynin chloride 10 mg tablet extended release 24hr 10 mg PO DAILY trazodone 100 mg tablet 100 mg PO QHS PRN (Reason: Insomnia) pantoprazole 40 mg tablet,delayed release (DR/EC) 40 mg PO QAM foitsnxpdncu-Mr-amgo-minerals 18-0.4 mg tablet 1 tablet PO DAILY ibuprofen 800 mg tablet 800 mg PO HS Metamucil 3.4 gram/5.4 gram powder 1 tbsp PO BID Rx Instructions: mix into at least 8 oz of water or juice before administering Follow-up/Referrals: Rustam,Deonte Galindo MD [Primary Care Provider, Unknown]
[2025-03-13] VITALS: BP 124/68; PULSE 71; RESP 16; O2SAT 100
[2025-03-13 00:17] LABS: Add Urine Microscopic? YES; Appearance Urine Turbid (Clear); Glucose Urine UA Negative (Negative); Leukocyte Esterase Ur 2+ LEU/UL (Negative); Need Manual Microscopic Reviewed; Nitrate Urine Negative (Negative); Specific Grav Ur 1.020 (1.001-1.035)
[2025-03-13] MEDS: SULFAMETHOXAZOLE/TRIMETHOPRIM 800/160 MG DS TABLET 1 TAB PO (01:05)
[2025-03-13 01:10] VITALS: BP 140/69; PULSE 65; RESP 18; O2SAT 99
== END 2025-03-13 01:10 | disposition home or self-care (01) ==
PROVIDERS: Emergency Provider Emergency Medicine; PCP Internal Medicine
DX: R31.9 Hematuria, unspecified (principal); M19.90 Unspecified osteoarthritis, unspecified site
CPT/HCPCS: 81001; 87086; 99283; A9270